=== PATIENT | male | born 1990 | race Caucasian/White ===

== ENCOUNTER 2025-03-17 06:43 | Emergency (ER) | payer OTHER ==
[~2025-03-17] VITALS: Ht 165.1 cm; Wt 65.0 kg
[2025-03-17 06:52] VITALS: O2SAT 99
[2025-03-17] MEDS: SODIUM CHLORIDE 0.9% 1,000 ML IV ONE (07:35)
[2025-03-17] MEDS: FAMOTIDINE 20MG/2ML VIAL IV ONE (07:36)
[2025-03-17] MEDS: ONDANSETRON HCL 4MG/2ML INJ IV ONE (07:36)
[2025-03-17] MEDS: MAGNESIUM/ALUMINUM HYDROXIDE/SIMETHICONE 30ML UDC PO ONE (07:55)
[2025-03-17] MEDS ORDERED: FAMOTIDINE 20MG TABLET PO ONE (08:00)
[2025-03-17] MEDS ORDERED: ONDANSETRON 4MG ODT PO ONE (08:00)
[2025-03-17] MEDS: ONDANSETRON 4MG ODT PO NR (08:57)
[2025-03-17] MEDS: FAMOTIDINE 20MG TABLET PO NR (08:57)
[2025-03-17 09:17] VITALS: BP 104/65; PULSE 76; RESP 18; TEMP 36.8; O2SAT 97
== END 2025-03-17 09:20 | disposition home or self-care (01) ==
LOC: ER 06:43
DX: K76.0 Fatty (change of) liver, not elsewhere classified (principal); R11.2 Nausea with vomiting, unspecified
CPT/HCPCS: 99284; 76700; Q0162; J2405; J7030

== ENCOUNTER 2025-03-23 06:35 | Emergency (ER) | payer OTHER ==
[~2025-03-23] VITALS: Ht 165.1 cm; Wt 74.0 kg
[2025-03-23 06:53] VITALS: TEMP 36.7; O2SAT 99
[2025-03-23] MEDS: TETANUS, DIPHTHERIA, PERTUSSIS VAC/PF 0.5ML (>10YR OLD) IM ONE (08:07)
[2025-03-23] MEDS: ACETAMINOPHEN 325MG TABLET PO ONE (08:08)
[2025-03-23 09:28] VITALS: BP 125/80; PULSE 78; RESP 18; O2SAT 97
== END 2025-03-23 09:34 | disposition home or self-care (01) ==
LOC: ER 06:35
DX: S00.31XA Abrasion of nose, initial encounter (principal); M25.511 Pain in right shoulder; Z23 Encounter for immunization; W01.0XXA Fall on same level from slipping, tripping and stumbling without subsequent striking against object, initial encounter; Y93.89 Activity, other specified; Y92.89 Other specified places as the place of occurrence of the external cause; Y99.8 Other external cause status
CPT/HCPCS: 73030; 70450; 70486; 72125; 90715; 90471; 99285; Z7610